=== PATIENT | male | born 1945 | race Hispanic/Latino ===

== ENCOUNTER 2018-01-11 19:16 | Emergency (ER) | payer MEDICARE ==
[2018-01-11] MEDS ORDERED: DEXAMETHASONE SOD PHOSPHATE 10MG/ML 1ML VIAL ONE (19:47)
[2018-01-11] MEDS ORDERED: ONDANSETRON ODT 4 MG TAB ONE (19:47)
[2018-01-11] MEDS ORDERED: MORPHINE SULFATE 4 MG/1ML SYG ONE (19:48)
[2018-01-11] MEDS ORDERED: DIAZEPAM 5 MG TABLET ONE (19:48)
== END 2018-01-11 20:34 | disposition home or self-care (01) ==
LOC: EDH 19:16
DX: M50.320 Other cervical disc degeneration, mid-cervical region, unspecified level (principal); E07.9 Disorder of thyroid, unspecified; Z72.0 Tobacco use
CPT/HCPCS: 72040; 96372 ×2; 99284; J1100; J2270

== ENCOUNTER → 2018-07-29 | Outpatient (CLI) | payer MEDICARE ==
[~2018-07-29] VITALS: Ht 172.7 cm; Wt 63.0 kg
[~2018-07-29] MED LIST: REGADENOSON 0.4 MG/5 ML PF SYG IVP SCH
== END | disposition home or self-care (01) ==
LOC: SHCH 08:19
PROVIDERS: ATTEND Internal Medicine Cardiovascular Disease
DX: R06.00 Dyspnea, unspecified (principal); I48.0 Paroxysmal atrial fibrillation
CPT/HCPCS: 78452; 93017; 96374; A9500 ×2; J2785

== ENCOUNTER 2019-08-22 18:08 | Observation (INO) | payer MEDICARE, OTHER ==
[~2019-08-22] VITALS: Ht 172.7 cm; Wt 58.3 kg
[2019-08-22] MEDS ORDERED: SODIUM CHLORIDE 0.9% 1000ML 1,000 ML IV ONE (18:36)
[2019-08-22] MEDS ORDERED: SODIUM CHLORIDE 0.9% 250 ML IV ONE (18:37)
[2019-08-22 18:54] LABS: BASOPHILS % (AUTO) 0.5 % (0.0-5.0); EOSINOPHILS % (AUTO) 4.8 % (0.0-8.0); HEMATOCRIT 36.9 % (42-54); LYMPHOCYTES % (AUTO) 14.9 % (21.0-51.0); MEAN CORPUSCULAR HEMOGLOBIN 29.9 pg (27.0-33.0); MEAN CORPUSCULAR VOLUME 93.4 fL (79-99); MONOCYTES % (AUTO) 10.2 % (3.0-13.0); NEUTROPHILS % (AUTO) 69.1 % (40.0-77.0); PLATELET COUNT (AUTO) 316 K/uL (130-400); RED BLOOD CELL COUNT(AUTO) 3.95 MIL/uL (4.50-6.20); RED CELL DISTRIBUTION WIDTH 12.4 % (11.0-15.5); WHITE BLOOD COUNT (AUTO) 7.4 K/uL (4.8-10.8)
[2019-08-22 19:08] LABS: ABG BASE EXCESS -1.3 mmol/L (-2.0-3.0); ABG HCO3 23.8 mmol/L (21.0-28.0); ABG OXYGEN SATURATION 94.9 % (95.0-99.0); ABG PCO2 42 mmHg (35-48)
[2019-08-22 19:23] LABS: CREATININE 1.3 mg/dL (0.5-1.5); POTASSIUM 4.4 mmol/L (3.5-5.1)
[2019-08-22 19:35] LABS: ALBUMIN 3.6 g/dL (3.5-5.0); BILIRUBIN,DIRECT 0.1 mg/dL (0.0-0.3); BILIRUBIN,TOTAL 0.2 mg/dL (0.2-1.0); MAGNESIUM 1.9 mg/dL (1.80-2.40); PHOSPHORUS 3.3 mg/dL (2.5-4.9); THYROID STIMULATING HORMONE 4.3 uIU/mL (0.36-3.74); TOTAL PROTEIN, SERUM 7.1 g/dL (6.0-8.3)
[2019-08-22 20:48] VITALS: BP 105/57
[2019-08-22] MEDS ORDERED: SERT50TA12 PO (21:24)
[2019-08-22] MEDS ORDERED: BUPR75TA8 PO (21:24)
[2019-08-22] MEDS ORDERED: IPRA3AMP24 IH (21:24)
[2019-08-22] MEDS ORDERED: DRON400T2 PO (21:24)
[2019-08-22] MEDS ORDERED: ATOR10TA69 PO (21:24)
[2019-08-22] MEDS ORDERED: MIDO5TAB4 PO (21:24)
[2019-08-22] MEDS ORDERED: ASPI-555 PO (21:24)
[2019-08-22] MEDS: SODIUM CHLORIDE 0.9% 1000ML 1,000 ML IV SCH (22:15)
[2019-08-22 23:38] VITALS: BP 107/57
[2019-08-23 04:00] VITALS: BP 116/58
[2019-08-23 08:00] VITALS: BP 106/63
[2019-08-23] MEDS: SODIUM CHLORIDE 0.9% 1000ML 1,000 ML IV SCH (08:29)
--- NOTE | 2019-08-23 08:51 | NUR ---
CHART REVIEWED [facility] GENERATED
[2019-08-23 12:00] VITALS: BP 100/54
[2019-08-23] MEDS ORDERED: ONDANSETRON HCL 4 MG/2 ML VIAL IV PRN (14:00)
[2019-08-23] MEDS ORDERED: GUAIFENESIN-DM 200/20 MG 10 ML PO PRN (14:00)
[2019-08-23] MEDS ORDERED: LIDOCAINE HCL-MPF 1% 2ML VIAL IV PRN (14:00)
[2019-08-23] MEDS ORDERED: POTASSIUM CHLORIDE 10% ELIXIR 20 MEQ/15 ML UDCUP PO PRN (14:00)
[2019-08-23] MEDS ORDERED: NITROGLYCERIN 0.4 MG SL TAB SL PRN (14:00)
[2019-08-23] MEDS ORDERED: ACETAMINOPHEN 325 MG TAB PO PRN ×2 (14:00)
[2019-08-23] MEDS ORDERED: POTASSIUM CHLORIDE 20MEQ/100ML 100 ML IV PRN (14:00)
[2019-08-23] MEDS ORDERED: DiphenhydrAMINE HCL 50 MG/ML VIAL IV PRN (14:00)
[2019-08-23] MEDS ORDERED: POTASSIUM CHLORIDE 20 MEQ ERTAB PO PRN (14:00)
[2019-08-23] MEDS ORDERED: LACTULOSE 20 GM/30 ML UDCUP PO PRN (14:00)
[2019-08-23] MEDS ORDERED: SODIUM CHLORIDE 0.9% 1000ML 1,000 ML IV SCH (14:30)
[2019-08-23] MEDS ORDERED: GADODIAMIDE 10 MMOL/20 ML VIAL IV ONE (14:40)
[2019-08-23 16:00] VITALS: BP_SYST 107; BP_SYST 111; BP_SYST 116; BP_DIAS 56; BP_DIAS 57; BP_DIAS 58
--- NOTE | 2019-08-23 16:45 | NUR ---
DCP HOME MEET WITH PATIENT IN ROOM. PER PATIENT, IS SEMI-INDEPENDENT WITH [facility] ASSISTING AT TIMES WHEN NEEDS IT, LIVES WITH [facility], DENIES PROVIDER SERVICES, HAS CANE, CRUTCHES AND NEBULIZER, AND FEELS SAFE TO RETURN HOME BUT OPEN TO SNF FOR PHYSICAL THERAPY IF ORDERED. Addendum: 08/25/19 at 1647 by PATRICIA MORRIS RN CM Amended: Links added.
--- NOTE | 2019-08-23 17:50 | NUR ---
CM NOTE NEW ORDER FOR SNF REFERRAL, OPTIONS GIVEN IN NETWORK WITH [facility] SIGNED FOR [facility], [facility] AND [facility] FAXED AND RECEIVED, HARLAN DIAZ AC[employer]IC PROGRAM SPECIALIST AWARE OF PENDING EVALUATION. PENDING H&P FROM [facility] EVAL AND TREATMENT. WILL FOLLOW UP ACCORDINGLY.
--- NOTE | 2019-08-23 17:52 | NUR ---
[facility] REFERRAL, [facility] FAXED AT 1243 ON 08/23/19.
[2019-08-23 19:59] VITALS: BP 132/58
[2019-08-23] MEDS ORDERED: RANITIDINE HCL 15 MG/1 ML PO SCH (21:00)
[2019-08-23 21:47] LABS: APPEARANCE,URINE Clear (CLEAR); BILIRUBIN,URINE Negative (NEGATIVE); COLOR,URINE Yellow (YELLOW); GLUCOSE, URINE (UA) Negative (NEGATIVE); KETONES,URINE Negative (NEGATIVE); LEUKOCYTE ESTERASE ,URINE Negative (NEGATIVE); NITRATE,URINE Negative (NEGATIVE); OCCULT BLOOD,URINE Negative (NEGATIVE); PH,URINE 6.5 (5.0-8.0); PROTEIN,URINE Negative (NEGATIVE); UROBILINOGEN,URINE 0.2 mg/dL (0.2-1.0)
[2019-08-23 23:45] VITALS: BP 112/59
[2019-08-24] MEDS: SODIUM CHLORIDE 0.9% 1000ML 1,000 ML IV SCH ×2 (00:26→11:20)
[2019-08-24] MEDS ORDERED: MIDODRINE HCL 5 MG TABLET PO PRN (00:30)
[2019-08-24 03:46] VITALS: BP 114/56
[2019-08-24 06:20] LABS: BASOPHILS % (AUTO) 0.7 % (0.0-5.0); EOSINOPHILS % (AUTO) 9.2 % (0.0-8.0); HEMATOCRIT 33.4 % (42-54); LYMPHOCYTES % (AUTO) 19.4 % (21.0-51.0); MEAN CORPUSCULAR HGB CONC 32.6 g/dL (32.0-36.0); MONOCYTES % (AUTO) 11.3 % (3.0-13.0); PLATELET COUNT (AUTO) 270 K/uL (130-400); RED BLOOD CELL COUNT(AUTO) 3.63 MIL/uL (4.50-6.20); RED CELL DISTRIBUTION WIDTH 12.4 % (11.0-15.5); WHITE BLOOD COUNT (AUTO) 5.7 K/uL (4.8-10.8)
[2019-08-24 06:32] LABS: % IRON SATURATION 31.4 % (30-44)
[2019-08-24 06:45] LABS: POTASSIUM 3.8 mmol/L (3.5-5.1); THYROID STIMULATING HORMONE 7.47 uIU/mL (0.36-3.74)
[2019-08-24 08:00] VITALS: BP_SYST 101; BP_SYST 88; BP_SYST 99; BP_DIAS 51; BP_DIAS 52; BP_DIAS 53
[2019-08-24] MEDS ORDERED: LEVOTHYROXINE 25 MCG TABLET PO SCH (08:45)
[2019-08-24] MEDS ORDERED: ENOXAPARIN SODIUM 30 MG/0.3 ML SQ SCH (09:00)
[2019-08-24] MEDS ORDERED: ASPIRIN 81 MG EC TAB PO SCH (09:00)
[2019-08-24] MEDS ORDERED: DRONEDARONE HYDROCHLORIDE 400 MG TABLET PO SCH (09:00)
[2019-08-24] MEDS ORDERED: ATORVASTATIN CALCIUM 10 MG TABLET PO SCH (09:00)
[2019-08-24] MEDS ORDERED: BUPROPION HCL 150 MG TABLET.SA PO SCH (09:00)
[2019-08-24] MEDS ORDERED: PANTOPRAZOLE SODIUM 40 MG TABLET.DR PO SCH ×2 (09:00→16:30)
[2019-08-24] MEDS ORDERED: SERTRALINE HCL 50 MG TABLET PO SCH (09:00)
--- NOTE | 2019-08-24 11:00 | NUR ---
CM NOTE NEW DISCHARGE PLAN PER PATIENT AND MD. DECLINE SNF FOR NOW AND FOLLOW UP WITH PCP FOR HOME HEALTH IF NEEDED FOR PHYSICAL THERAPY.
[2019-08-24] MEDS: FERROUS SULFATE 325 MG TABLET.DR PO SCH ×2 (11:20→17:28)
[2019-08-24 12:00] VITALS: BP_SYST 102; BP_SYST 109; BP_SYST 95; BP_DIAS 52; BP_DIAS 53
[2019-08-24] MEDS ORDERED: LEVO25TA9 PO (14:25)
[2019-08-24] MEDS ORDERED: FERR324T4 PO (14:25)
[2019-08-24 16:00] VITALS: BP_SYST 77; BP_SYST 84; BP_SYST 88; BP_DIAS 51; BP_DIAS 52; BP_DIAS 54
--- NOTE | 2019-08-24 18:18 | NUR ---
DISCHARGE INSTRUCTIONS READ AND EXPLAINED TO PATIENT. ADVISED PATIENT THAT PRESCRIPTION WAS SENT ELECTRONICALLY TO [facility] PREFERRED. QUESTIONS INVITED AND ANSWERED. PATIENT AND AT BEDSIDE VOICED UNDERSTANDING.
== END 2019-08-24 18:22 | disposition home or self-care (01) ==
LOC: EDH 18:08 → EDHIP 18:09 → 4DH 20:28
PROVIDERS: ADMIT Internal Medicine Pulmonary Disease; ATTEND Internal Medicine Pulmonary Disease
DX: E86.0 Dehydration (principal); R55 Syncope and collapse; J96.01 Acute respiratory failure with hypoxia; N18.9 Chronic kidney disease, unspecified; D63.8 Anemia in other chronic diseases classified elsewhere; K80.20 Calculus of gallbladder without cholecystitis without obstruction; K57.90 Diverticulosis of intestine, part unspecified, without perforation or abscess without bleeding; J44.9 Chronic obstructive pulmonary disease, unspecified; I95.9 Hypotension, unspecified; R29.6 Repeated falls; R42 Dizziness and giddiness; Z87.891 Personal history of nicotine dependence
CPT/HCPCS: 36415 ×2; 36600; 70549; 70553; 71045; 71250; 80048 ×2; 80076; 81003; 82803; 83540; 83550; 83605; 83735; 84100; 84439; 84443 ×2; 85025 ×2; 93306; 94760 ×3; 96360; 96361 ×2; 96372; 97039; 97116 ×2; 97161; 99284; A4606; A9579; G0378 ×7; G8978; G8979; G8980; G8981; G8982; G8983; J1650; J7030 ×3

== ENCOUNTER → 2020-08-20 | Outpatient (CLI) | payer OTHER ==
[~2020-08-20] MED LIST changes: +ASPI-556 PO; +ATOR10TA69 PO; +BUPR75TA8 PO; +DRON400T2 PO; +FERR324T4 PO; +IPRA3AMP24 IH; +LEVO25TA9 PO; +MIDO5TAB4 PO; -REGADENOSON 0.4 MG/5 ML PF SYG IVP SCH; +SERT50TA12 PO
== END | disposition home or self-care (01) ==
LOC: RAH 12:09
PROVIDERS: ATTEND Internal Medicine
DX: S09.90XA Unspecified injury of head, initial encounter (principal); X58.XXXA Exposure to other specified factors, initial encounter; Y93.89 Activity, other specified; Y92.89 Other specified places as the place of occurrence of the external cause; Y99.8 Other external cause status
CPT/HCPCS: 70450

== ENCOUNTER → 2022-10-08 | Outpatient (CLI) | payer OTHER ==
[~2022-10-08] MED LIST changes: +ALBUTEROL 0.042% 1.25MG/3ML IH ONE; -DRON400T2 PO; +DRON400T7 PO; +SERT-439 PO; -SERT50TA12 PO
== END | disposition home or self-care (01) ==
LOC: RESP 08:23
PROVIDERS: ATTEND Internal Medicine Cardiovascular Disease
DX: J44.9 Chronic obstructive pulmonary disease, unspecified (principal); I48.0 Paroxysmal atrial fibrillation; I95.1 Orthostatic hypotension; Z86.16 Personal history of COVID-19
CPT/HCPCS: 94060; 94727; 94729

== ENCOUNTER 2024-09-19 21:13 | Emergency (ER) | payer OTHER ==
[~2024-09-19] VITALS: Ht 170.2 cm; Wt 64.0 kg
[~2024-09-19 21:13] MED LIST changes: -ALBUTEROL 0.042% 1.25MG/3ML IH ONE
--- NOTE | 2024-09-19 22:26 | HMCIMG ---
FOREARM 2VWS LT HISTORY: Trauma COMPARISON: None TECHNIQUE: 2 images of left forearm were obtained. FINDINGS: There is no acute displaced fracture or dislocation. Degenerative changes are seen. IMPRESSION: 1. Findings as described above.
[2024-09-19] MEDS: acetaMINOPHEN 325 MG TAB PO ONE (22:30)
[2024-09-19] MEDS: LIDOCAINE HCL 1% 20 ML VIAL INJ SCH (23:00)
[2024-09-19] MEDS: NEOMY SULF/BACITRA/POLYMYXIN B 1 EACH PACKET TP ONE (23:52)
[2024-09-19] MEDS ORDERED: CEPH500B PO (23:52)
--- NOTE | 2024-09-19 23:52 | ERN ---
ED Note History of Present Illness Stated Complaint: LEFT ARM LACERATION Chief Complaint: Laceration/Avulsion Time Seen by MD: 21:40 Time Seen by Midlevel: 21:40 Dictation: The patient is a 79-year-old male with no past medical history who presents to the emergency department with left arm laceration after he tripped and fell home. Patient reports he landed on his buttocks. Denies any head trauma, use of blood thinners, neck pain, back pain, hip pain. Patient ambulatory. Patient reports he had his tetanus done last year. Allergies: Coded Allergies: No Known Drug Allergies (Verified Allergy, Unknown, 08/20/20) Home Meds Active Scripts Levothyroxine Sodium (Synthroid 25 Mcg Tab) 25 Mcg Tablet, 25 MCG PO DAILY@0630 for 30 Days, #30 TAB Prov:MARQUEZ SANCHEZ MANAGER [employer]LEMARKETING 08/24/19 Ferrous Sulfate (Ferrous Sulfate) 324 Mg Tablet.dr, 325 MG PO TIDMEALS for 30 Days, #90 TAB Prov:MARQUEZ SANCHEZ MANAGER TELEMARKETING 08/24/19 Reported Medications Ipratropium/Albuterol Sulfate (Iprat-Albut 0.5-3(2.5) mg/3 ml) 3 Ml Ampul.neb, 3 ML IH [id number] 08/22/19 Atorvastatin Calcium (Atorvastatin Calcium) 10 Mg Tablet, 10 MG PO DAILY, TAB 08/22/19 Sertraline HCl (Sertraline HCl) 50 Mg Tablet, 50 MG PO DAILY, TAB 08/22/19 Bupropion HCl (Bupropion HCl) 75 Mg Tablet, 150 MG PO BID, TAB 08/22/19 Dronedarone Hydrochloride (Multaq) 400 Mg Tablet, 400 MG PO BID, TAB 08/22/19 Aspirin (Aspir 81) 81 Mg Tablet.dr, 81 MG PO DAILY, TAB 08/22/19 Midodrine HCl (Midodrine HCl) 5 Mg Tablet, 5 MG PO Q4H PRN for OTHER [SEE ORDER COMMENTS], TAB 08/22/19 Past Medical History Past Medical History: No Pertinent History Surgical History: Unknown RN Note Reviewed/Agreed w/PFSH: Yes Review of System Dictation Constitutional: Negative for fever,chills, and weight loss Eyes: Negative for injury, pain,redness, and discharge ENT: Negative for injury,pain or swelling Cardiovascular: Negative for chest pain, palpitations, and edema Respiratory: Negative for shortness of breath, cough, and wheezing, Abdomen/GI: Negative for abdominal pain, nausea, vomiting, diarrhea, and constipation Back: Negative for injury and pain : Negative for injury, bleeding and discharge MS/Extremity: Negative for injury and deformity Skin: Negative for rash, and discoloration positive for wound to left forearm Neuro: Negative for headache, weakness, numbness, tingling, and seizure Psych: Negative for suicide ideation, homicidal ideation, and hallucinations Initial Vital Sign VS Vital Signs Date Time Temp Pulse Resp B/P (MAP) Pulse Ox O2 Delivery O2 Flow Rate FiO2 09/19/24 21:22 97.9 74 20 144/81 96 Room Air 09/19/24 21:56 0 21 Physical Exam Dictation Vital Signs reviewed General Appearance: Alert, oriented x 3, no acute distress, well developed, nourished. Head and Face: non-traumatic. Eyes: PERRL, pink conjunctivas, eyelid no trauma, anterior chamber with arcus senilis. Ears: Pinnas intact and no signs of trauma or erythema ear canals clear and no discharge TM no erythema Nose: No discharge, no bleeding. Oropharynx: Mouth normal, tongue pink. pharynx clear,no erythema, tonsils no exudates, no abscesses noted, mucous membrane moist Neck: Supple, non-tender, no thyromegaly, no masses, no JVD, no bruits Breast:Deferred Chest:No tenderness, no crepitus, no paradoxical movement, no retractions Lungs:Clear, well-ventilated, symmetric, no rales, no wheezing, no rhonchi, no stridor, good breath sounds bilaterally Heart: Regular rate, regular rhythm, no murmur, no gallops Vascular: no peripheral edema, radial pulse 3 +. Abdomen: Soft, positive bowel sounds, nondistended, no guarding, nontender, no rebound, no masses no hepatomegaly, no splenomegaly, no Ragsdale's sign, no hernias. Rectal: Deferred Genital: Deferred Neurological: Normal speech, motor function intact, sensory function intact Musculoskeletal: Neck nontender, full range of motion, back nontender, full range of motion, Extremities: nontender, full range of motion Skin: Color pink, dry, no turgor, no rash, no lacerations, no abrasions, no contusions. Large abrasion to left forearm, minimal bleeding,10cm, patient will full range of hand and fingers, sensation intact Lymphatic: Deferred Results (Laboratory/Radiology) Laboratory/Radiology REASON: trauma ORDERING PHYSICIAN: NAEEM TOMAS PROCEDURE: FORARML - FOREARM 2VWS LT FOREARM 2VWS LT HISTORY: Trauma COMPARISON: None TECHNIQUE: 2 images of left forearm were obtained. FINDINGS: There is no acute displaced fracture or dislocation. Degenerative changes are seen. IMPRESSION: 1. Findings as described above. Labs Reviewed?: Yes ED Course ED Course Orders Procedure Category Date Status Time Forearm 2vws Lt RAD 09/19/24 Resulted 21:56 Acetaminophen 325 Tab PHA 09/19/24 Complete (Tylenol 325mg Tab 22:00 Wound Care (Er) CPOE 09/19/24 Transmitted 22:31 Lidocaine Hcl 1% 20ml PHA 09/19/24 In Process Vial (Lidocaine Hc 23:00 Neomy PHA 09/20/24 In Process Sulf/Bacitra/Polymyxin 00:00 Current Medications Medications (Trade) Dose Ordered Sig/Fito Route PRN Reason Start Time Stop Time Status Last Admin Dose Admin Acetaminophen (TYLenol 325MG TAB) 650 mg ONCE ONCE PO 09/19/24 22:00 09/19/24 22:01 DC 09/19/24 22:30 Lidocaine HCl (Lidocaine HCl 1% 20ml Vial) 10 ml ONCE INJ 09/19/24 23:00 10/19/24 22:59 Neomycin/ Polymyxin/ Bacitracin (Triple Antibiotic Ointment) 1 appl ONCE ONCE TP 09/20/24 00:00 09/20/24 00:01 Vital Signs Date Time Temp Pulse Resp B/P (MAP) Pulse Ox O2 Delivery O2 Flow Rate FiO2 09/19/24 23:30 98.8 75 18 135/69 98 Room Air* 0 21 09/19/24 21:56 98.8 72 18 142/65 98 Room Air* 0 21 09/19/24 21:22 97.9 74 20 144/81 96 Room Air Medical Decision Making MDM The patient is a 79-year-old male with no past medical history who presents to the emergency department with left arm laceration after he tripped and fell home. Patient reports he landed on his buttocks. Denies any head trauma, use of blood thinners, neck pain, back pain, hip pain. Patient ambulatory. Patient reports he had his tetanus done last year. X-ray showed no acute fractures or dislocations. Patient's wound cleaned extensively with Betadine and saline. Unable to repaired. Patient's arm wrapped with nonadhesive dressing. Patient instructed to follow up with PCP everett colón he agrees to follow up in the morning. Patient in no acute distress, ambulatory. Differential diagnosis: Forearm fracture, laceration, avulsion Need for hospitalization: Patient does not meet criteria for hospitalization. There are no social concerns with this patient. DX & DISP Disposition: Discharge Departure Impression: Primary Impression: Avulsion of skin of left forearm Condition: Stable Scripts Cephalexin Monohydrate (Keflex) 500 Mg Cap 500 MG PO QID for 7 Days, #28 CAP Prov: NAEEM TOMAS 09/19/24 Additional Instructions: Please follow up with your primary doctor in 1-2 days. Keep wound clean and dry. If any symptoms of infection develop like redness, fevers, abnormal drainage, purulent drainage please follow up with your doctor return to ER. FOLLOW-UP WITH PRIMARY CARE PROVIDER IN 1 TO 2 DAYS. TAKE MEDICATIONS DIRECTED HERE IN THE EMERGENCY ROOM. OKAY TO CONTINUE HOME MEDICATIONS UNLESS OTHERWISE DISCUSSED DURING YOUR VISIT IN THE EMERGENCY ROOM TODAY. RETURN TO YOUR NEAREST EMERGENCY ROOM IF SYMPTOMS WORSEN OR IF THERE IS NO IMPROVEMENT. CALL [phone] IF YOU NEED IMMEDIATE ASSISTANCE. TAKE TYLENOL OR MOTRIN [id number] NEEDED AND IF NO CONTRAINDICATIONS ARE PRESENT. INCREASE ORAL HYDRATION. A WOUND CULTURE OR URINE CULTURE WAS ORDERED HERE IN THE EMERGENCY ROOM DEPARTMENT PLEASE FOLLOW-UP WITH PRIMARY CARE PROVIDER AND ADVISE THEM TO GET REPEAT PORTS FROM OUR FACILITY. IF YOU HAD ANY AURA WRAP/SPLINTS THAT WERE APPLIED HERE, PLEASE DO NOT REMOVE THEM UNTIL YOU SEE YOUR PRIMARY CARE OR SPECIALTY. Referrals: MARYANN NICHOLAS MD (PCP) Time of Disposition: 23:49 I have reviewed the case, and I agree with, Diagnosis and Plan NAEEM TOMAS Sep 19, 2024 23:52
[2024-09-20 00:11] VITALS: BP 127/65; PULSE 75; RESP 18; TEMP 98.8; O2SAT 96
== END 2024-09-20 00:12 | disposition home or self-care (01) ==
LOC: EDH 21:13
DX: S50.812A Abrasion of left forearm, initial encounter (principal); Z79.82 Long term (current) use of aspirin; Z79.890 Hormone replacement therapy; Z79.899 Other long term (current) drug therapy; W01.0XXA Fall on same level from slipping, tripping and stumbling without subsequent striking against object, initial encounter; Y93.89 Activity, other specified; Y92.89 Other specified places as the place of occurrence of the external cause; Y99.8 Other external cause status
CPT/HCPCS: 73090; 99283